=== PATIENT | male | born 1995 | race Caucasian/White ===

== ENCOUNTER 2023-05-20 22:49 | Observation (INO) | payer OTHER, SELFPAY ==
[2023-05-20] VITALS (7 sets, daily range): BP systolic 126–135; BP diastolic 81–99; PULSE 73–97; RESP 13–30; TEMP 36.7; O2SAT 93–100
--- NOTE | ~2023-05-20 | XR_ITS ---
EXAMINATION: XR chest 2V DATE: 05/21/2023 09:54 INDICATION: Altered mental status post migraine TECHNIQUE: PA and lateral views of the chest were obtained. COMPARISON: Chest radiograph dated 03/23/2019 FINDINGS: The lungs remain clear with no focal airspace opacities, pulmonary edema, pleural effusion or pneumot horax. The cardiomediastinal silhouette is normal. Visualized bones and soft tissues are unremarkable . IMPRESSION: 1. No acute cardiopulmonary disease. Reviewed, dictated and finalized at location A.
--- NOTE | ~2023-05-20 | CT_ITS ---
EXAMINATION: CT brain wo con DATE: 05/20/2023 23:01 INDICATION: Headache. Slurred speech. TECHNIQUE: Computed tomography (CT) of the head was performed without intravenous contrast. The mA wa s adjusted according to patient size. Iterative reconstruction technique was employed. The dose-lengt h product was 681.00 mGy-cm. COMPARISON: Head CT 02/22/2012 FINDINGS: There is no intracranial hemorrhage, acute infarction, or abnormal intracranial mass lesion . The ventricles are normal in size. There is mild mucosal thickening in the paranasal sinuses. The m astoid air cells are normal. IMPRESSION: 1. Normal brain. Reviewed, dictated and finalized at location A. IMPRESSION: 1. Normal brain.
--- NOTE | ~2023-05-20 | MR_ITS ---
EXAMINATION: MR brain/brain stem wo con DATE: 05/21/2023 13:16 INDICATION: Transient aphasia. Migraine headache. TECHNIQUE: Magnetic resonance imaging (MRI) of the brain and brainstem was performed without intraven ous contrast. COMPARISON: Head CT 05/20/2023 FINDINGS: There is no intracranial hemorrhage, acute infarction, or abnormal intracranial mass lesion . The ventricles are normal in size. There is mild mucosal thickening in the paranasal sinuses. The m astoid air cells are normal. The orbits are normal. IMPRESSION: 1. Normal brain. Reviewed, dictated and finalized at location A. IMPRESSION: 1. Normal brain.
[2023-05-20 22:59] LABS: Glucose Point of Care 156 mg/dl (65-105)
[2023-05-20 23:07] LABS: Basophils Absolute Auto 0.1 K/mm3 (0.0-0.1); Basophils Percent Auto 0.6 % (0.2-1.2); Eosinophils Percent Auto 0.4 % (0-4.4); Hematocrit 42.8 % (42.0-52.0); Hemoglobin 15.2 g/dL (14.0-18.0); Immature Granulocyte Absolute 0.05 K/mm3 (0.00-0.031); Immature Granulocyte Percent A 0.5 % (0-0.5); Lymphocytes Absolute Auto 2.09 K/mm3 (0.9-3.2); Mean Corpuscular HGB Conc 35.5 g/dl (32-36); Mean Corpuscular Hemoglobin 31.3 pg (26-34); Mean Corpuscular Volume 88.2 fl (80-100); Mean Platelet Volume 9.7 fl (7.4-10.4); Monocytes Absolute Auto 0.8 K/mm3 (0.1-0.6); Monocytes Percent Auto 6.9 % (2.6-8.5); Neutrophils Percent Auto 72.6 % (45.5-73.1); Platelet Count Result 243 k/mm3 (150-375); Red Blood Count 4.85 M/mm3 (4.6-6.20); Red Cell Distribution Width 11.4 % (11.5-14.5)
--- NOTE | 2023-05-20 23:09 | ECG_ITS ---
Measurements Intervals [place] Rate: 89 P: 5 IL: 136 QRS: 3 QRSD: 120 T: 1 QT: 385 QTc: 471 Interpretive Statements SINUS RHYTHM INCOMPLETE RIGHT BUNDLE BRANCH BLOCK BORDERLINE T WAVE ABNORMALITY- ANT/INF LEADS BASELINE ARTIFACT- I, II, III, AVR, AVL, AVF BORDERLINE ECG NO PREVIOUS ECG AVAILABLE FOR COMPARISON Electronically Signed On 05-22-2023 14:19:46 CDT by Lalito Sutton D.O.
[2023-05-20 23:13] LABS: Alanine Aminotransferase 22 U/L (6-50); Albumin Level 4.6 g/dL (3.5-5.1); Alkaline Phosphatase 92 U/L (38-126); Anion Gap 12 mmol/L (8-16); Aspartate Amino Transferase 26 U/L (17-59); Bilirubin,Total 0.5 mg/dL (0.2-1.3); Blood Urea Nitrogen 11 mg/dL (9-20); Calcium 9.5 mg/dL (8.4-10.2); Carbon Dioxide 24 mmol/L (22-30); Chloride 101 mmol/L (98-107); Estimated CRCL calculation 166 ml/min; Estimated Glomerular Filt Rate > 60; Glucose 142 mg/dL (65-110); Potassium 3.4 mmol/L (3.4-5.0); Sodium 137 mmol/L (137-145)
[2023-05-20] MEDS: ONDANSETRON INJ 4 MG/2 ML VIAL (23:13)
[2023-05-20] MEDS: diphenhydrAMINE HCl INJ 50 MG/ML VIAL 25 MG IV PUSH (23:13)
[2023-05-20] MEDS: METOCLOPRAMIDE HCL INJ 10 MG/2 ML VIAL IV PUSH (23:13)
[2023-05-20] MEDS: SODIUM CHLORIDE 0.9% IV 1,000 ML 999 ML IV CONT (23:15)
[2023-05-20] MEDS: KETOROLAC 15 MG/ML VIAL (*BKC) IV PUSH (23:57)
[2023-05-21] VITALS (28 sets, daily range): BP systolic 113–155; BP diastolic 51–81; PULSE 59–105; RESP 14–37; TEMP 36.3–36.4; O2SAT 96–99; BMI 31.8
--- NOTE | 2023-05-21 00:15 | ED.NEUROSD ---
HPI - Neuro Symptoms/Deficit General Chief Complaint: Neuro Symptoms/Deficit Stated Complaint: slurred speech, headache Time Seen by Provider: 05/20/23 23:01 History of Present Illness HPI Narrative: Patient brought to the emergency department by his significant other with concern for slurred speech and confusion after a severe headache started. Patient is a history of migraines. However he has not had any neurodeficits with migraines in the past. No extremity weakness or numbness. Patient appears very uncomfortable. History contributed by his significant other. After getting the head CT he had nausea and vomiting in the room. Related Data Home Medications Medication Instructions Recorded Confirmed No Home Medications 09/29/19 09/29/19 Allergies Allergy/AdvReac Type Severity Reaction Status Date / Time No Known Drug Allergies Allergy Unknown UNKNOWN Verified 10/02/19 11:16 Review of Systems Review of Systems: Review of systems are negative except for commented in the HPI PMFSH Past Medical History Medical History (Updated 05/21/23 @ 05:24 by Nicole Starkey MD) Anxiety Tonsillectomy planned Family History Family History Father Diabetes mellitus Grandparent Diabetes mellitus Social History Social History Smoking status: Never smoker Alcohol intake: never Exam Narrative: GENERAL: Well-appearing, well-nourished but uncomfortable and confused HEAD: Normocephalic, atraumatic. EYES: PERRLA and EOMI. ENT: Nares clear, no rhinorrhea or epistaxis. Mucous membranes moist. NECK: Supple. CHEST: Clear to auscultation. No respiratory distress. HEART: Regular rate and rhythm. ABDOMEN: Soft, nontender, nondistended. EXTREMITIES: Normal range of motion. No edema. SKIN: Warm, dry, no rash. NEURO: No focal deficits. Alert and oriented x3. confused when answering questions PSYCH: Normal mood and affect. Course Vital Signs Vital signs: Vital Signs Temperature 36.7 C 05/20/23 23:04 Pulse Rate 97 05/20/23 23:04 Respiratory Rate 17 05/20/23 23:04 Blood Pressure 126/81 05/20/23 23:04 Pulse Oximetry 96 05/20/23 23:04 Temperature 36.7 C 05/20/23 23:04 Pulse Rate 105 H 05/21/23 04:02 Respiratory Rate 19 05/21/23 04:02 Blood Pressure 143/59 H 05/21/23 04:02 Pulse Oximetry 97 05/21/23 04:02 MDM - Neuro Symptoms/Deficit MDM Narrative Medical decision making narrative: Patient speech is clear and carries on normal conversation. However still slightly confused at times. States headache is somewhat improved but still very uncomfortable and located left temporal region. Magnesium and Fioricet ordered for second line migraine treatment since initial medications did not help. Head CT read as unremarkable Lab Data 05/20/23 22:56 05/20/23 22:56 Labs: Lab Results 05/20/23 05/20/23 Range/Units 22:54 22:56 WBC 11.0 H (4.5-10.0) K/mm3 RBC 4.85 (4.6-6.20) M/mm3 Hgb 15.2 (14.0-18.0) g/dL Hct 42.8 (42.0-52.0) % MCV 88.2 (80-100) fl MCH 31.3 (26-34) pg MCHC 35.5 (32-36) g/dl RDW 11.4 L (11.5-14.5) % Plt Count 243 (150-375) k/mm3 MPV 9.7 (7.4-10.4) fl Immature Gran % (Auto) 0.5 (0-0.5) % Neut % (Auto) 72.6 (45.5-73.1) % Lymph % (Auto) 19.0 (18.3-44.2) % [place] % (Auto) 6.9 (2.6-8.5) % Eos % (Auto) 0.4 (0-4.4) % Baso % (Auto) 0.6 (0.2-1.2) % Lymph # (Auto) 2.09 (0.9-3.2) K/mm3 [place] # (Auto) 0.8 H (0.1-0.6) K/mm3 Eos # (Auto) 0.0 (0-0.3) K/mm3 Baso # (Auto) 0.1 (0.0-0.1) K/mm3 Abs Immat Gran (auto) 0.05 H (0.00-0.031) K/mm3 Absolute Neuts (auto) 8.0 H (1.3-6.7) K/mm3 Absolute Nucleated RBC 0.0 (0.0-0.012) K/mm3 Nucleated RBC % 0.0 (0.0-0.2) % Sodium 137 (137-145) mmol/L Potassium 3.4 (3.4-5.0) mmol/L Chloride 101 (98-1
[2023-05-21] MEDS: ACETAMINOPHEN/BUTALBITAL/CAFFEINE 325-50-40 MG TABLET (FIORICET) 1 TAB PO (01:50)
[2023-05-21] MEDS: MAGNESIUM SULF 2 GM/WATER 50ML 2 GM/50 ML BAG IVPB (01:52)
--- NOTE | 2023-05-21 08:13 | PM.IMHP ---
H&P: HPI History of Present Illness Date/Time: 05/21/23 08:13 Chief Complaint: Altered mental status Narrative: 28 years old gentleman with history of migraine, present ED with a chief complaint of headache, altered mental status and confusion. Patient had a headache yesterday evening about 11 PF, associated with nausea vomiting. Patient denies fever, chills, photophobia. Patient states he has history of migraine, and she really has nausea vomiting associated with migraine attack. Patient was noticed confused, slurred speech, but no seizure activity was noticed by his . Patient denied bladder region, but had unstable gait. Patient denies dizziness, chest pain, abdomen pain, nausea vomiting diarrhea dysuria. Patient was brought to ED for evaluation, in the ED, patient was still confused. In the ED, patient found have leukocytosis 11,000 afebrile, blood pressure stable, transient sinus tachycardia, CT of head shows no acute intracranial issues. ER physician consulted neurologist, we admit patient will further evaluation and management Review of Systems Review of Systems: RS negative except above PMFSH Past Medical History Medical History (Updated 05/21/23 @ 11:23 by Sylvie Delgado MD) Anxiety Tonsillectomy planned Family History Family History Father Diabetes mellitus Grandparent Diabetes mellitus Social History Social History Smoking status: Never smoker Alcohol intake: never Substance use: never Substance use type: does not use Lack of Transportation: No Lack of Food: Never True Current Housing: I Have Housing Concerned About Future Housing: No Difficulty Paying Gas/Electric Bills: No Difficulty Paying for Meds: No Currently Unemployed: No Education: Associate Degree Difficulty w/ Childcare or Family Care: No Spiritual care concerns: No Meds Home Medications and Allergies Home Medications Medication Instructions Recorded Confirmed Type No Home Medications 09/29/19 05/21/23 History Allergies Allergy/AdvReac Type Severity Reaction Status Date / Time No Known Drug Allergies Allergy Unknown UNKNOWN Verified 10/02/19 11:16 Vital Signs Vital Signs - 24 hr 05/20/23 23:04 05/20/23 23:22 05/20/23 23:04 Temperature 98.0 F Pulse Rate 97 80 93 Respiratory Rate 17 16 Blood Pressure 126/81 Pulse Oximetry 96 97 Oxygen Delivery 05/20/23 23:15 05/20/23 23:32 05/20/23 23:33 Temperature Pulse Rate 96 80 73 Respiratory Rate 30 H 15 13 Blood Pressure 134/99 H Pulse Oximetry 99 93 Oxygen Delivery 05/20/23 23:45 05/20/23 23:47 05/21/23 00:00 Temperature Pulse Rate 77 91 81 Respiratory Rate 25 H 20 37 H Blood Pressure 135/88 Pulse Oximetry 97 100 Oxygen Delivery 05/21/23 00:23 05/21/23 00:30 05/21/23 00:49 Temperature Pulse Rate 82 71 81 Respiratory Rate 23 H 22 H 18 Blood Pressure Pulse Oximetry 98 96 97 Oxygen Delivery 05/21/23 01:00 05/21/23 01:16 05/21/23 01:17 Temperature Pulse Rate 71 75 68 Respiratory Rate 22 H 22 H 20 Blood Pressure 149/75 H Pulse Oximetry 97 97 96 Oxygen Delivery 05/21/23 01:33 05/21/23 01:49 05/21/23 02:00 Temperature Pulse Rate 76 59 L 83 Respiratory Rate 19 16 20 Blood Pressure Pulse Oximetry 96 97 96 Oxygen Delivery 05/21/23 02:01 05/21/23 02:15 05/21/23 02:30 Temperature Pulse Rate 83 74 96 Respiratory Rate 18 15 24 H Blood Pressure 113/63 Pulse Oximetry 96 96 97 Oxygen Delivery 05/21/23 02:31 05/21/23 02:45 05/21/23 02:47 Temperature Pulse Rate 76 94 71 Respiratory Rate 25 H 17 Blood Pressure 146/73 H 155/77 H Pulse Oximetry 97 98 96 Oxygen Delivery 05/21/23 03:00 05/21/23 03:02 05/21/23 03:15 Temperature Pulse Rate 76 70 87 Respiratory Rate 19 19 17 Blood Pressure 122/51 L Pulse Oximetry 9
--- NOTE | 2023-05-21 10:10 | WPDNEURCNPN ---
Assessment and Plan Assessment and plan (1) Headache: Qualifiers: Headache chronicity pattern: acute headache Headache type: unspecified Intractability: not intractable Qualified Code(s): R51.9 - Headache, unspecified Code(s): R51.9 - Headache, unspecified Status: Acute (2) Acute alteration in mental status: Code(s): R41.82 - Altered mental status, unspecified Status: Acute (3) Migraine: Code(s): G43.909 - Migraine, unspecified, not intractable, without status migrainosus Status: Acute Plan Mr. Armstrong is a 28 year old male with a history of migraines presenting with new transient altered mental status and aphasia in the setting of a severe migraine. After acute treatment of migraine, patient's symptoms have resolved. Likely acute confusional migraine. - Patient has never taken a triptan for his migraines -- he can take sumatriptan 50mg as needed at onset of a migraine, can repeat dose x 1 if no relief - No preventative medication needed since migraines are infrequent - MRI brain w/o contrast -- if normal, okay to discharge Consult date: 05/21/23 Reason for consult: Headache, altered mental status HPI: Mainor Armstrong is a 28 year old male with a prior history of migraines presenting due to confusion in the setting of headache. Patient was brought to [place] ED yesterday after presenting with slurred speech and confusion after the onset of a severe headache. Patient has a history of migraines but has not had any confusional episodes like this before. He does not have any focal weakness or numbness. In the ED his CT head was unrevealing. WBC was 11, but otherwise labs were normal. UDS was ordered but has not been obtained. He initially received a migraine cocktail with Toradol, Benadryl, and Reglan. This did not abort the headache so he received magnesium and Fioricet as well. Patient's significant other reports that patient was actually aphasic for four hours. Patient reports that he had a migraine during these entire episode of speech change. He no longer has a headache and his speech is back to baseline. He has migraines sporadically at baseline, but they are fairly rare. He does not take any abortive medications for the migraines. He has never tried a triptan. Review of Systems Constitutional: Constitutional: Denies chills, Denies fever(s) and Denies weight loss Eyes: Eyes: Reports blurry vision, Denies diplopia and Denies loss of vision ENT: Denies dizziness, Denies hearing loss and Denies tinnitus Cardiovascular: Cardiovascular: Denies chest pain, Denies syncope and Denies dyspnea Respiratory: Respiratory: Denies cough, Denies dyspnea and Denies wheezing Gastrointestinal: Gastrointestinal: Denies abdominal pain, Denies change in bowel habits, Reports nausea and Reports vomiting Genitourinary: Genitourinary: Denies urinary incontinence Musculoskeletal: Musculoskeletal: Denies arthralgias and Denies joint swelling Integumentary/Breasts: Skin/Breast: Denies new lesions and Denies rash Neurologic: Reports as per HPI, Reports confusion, Denies dizziness, Denies syncope, Reports headache(s) and Denies loss of vision Psychiatric: Psychiatric: Denies anxiety and Denies depression Endocrine: Endocrine: Denies cold intolerance and Denies heat intolerance Hematologic/Lymphatic: Hematologic/Lymphatic: Denies easy bleeding and Denies easy bruising Allergic/Immunologic: Allergic/Immunologic: Denies no additional allergic/immunologic complaints and Denies wheezing PMFSH Past Medical History Medical History (Updated 05/21/23 @ 11:23 by Sylvie Delgado MD) Anxiety Tonsillectomy planned Family History Family History Father Diabetes mellitus Grandparent Diabetes mellitus Social History Social History Smoking status: Never smoker Alcohol intake: never Substance
[2023-05-21] MEDS: DEXTROSE 5%/0.9% SOD CHL 1,000 ML 100 ML IV CONT (11:37)
[2023-05-21 15:47] LABS: Appearance Urine Clear (Clear); Bilirubin Urine Negative (Negative); Blood Urine Negative (Negative); Color Urine Yellow (Yellow); Glucose Urine UA Negative (Negative); Ketones Urine Negative (Negative); Leukocyte Esterase Ur Negative LEU/UL (Negative); Nitrate Urine Negative (Negative); Protein Urine Negative (Negative); Urobilinogen Urine 0.2 mg/dL (<2.0)
[2023-05-21 15:52] LABS: Add Urine Microscopic? NO
--- NOTE | 2023-05-21 16:07 | PM.DS ---
DS: Admitting Diagnosis Discharge Date today Admitting Diagnosis (1) Headache: ?Qualifiers: ?Headache chronicity pattern:?acute headache??Headache type:?unspecified??Intractability:?not intractable? Qualified Code(s):?R51.9 - Headache, unspecified ?Code(s): R51.9 - Headache, unspecified ?Status:?Acute (2) Acute alteration in mental status: ?Code(s): R41.82 - Altered mental status, unspecified ?Status:?Acute (3) Migraine: ?Code(s): G43.909 - Migraine, unspecified, not intractable, without status migrainosus ?Status:?Acute DS: Discharge Diagnosis Discharge Diagnosis (1) Headache: Qualifiers: Headache chronicity pattern: acute headache Headache type: unspecified Intractability: not intractable Qualified Code(s): R51.9 - Headache, unspecified Code(s): R51.9 - Headache, unspecified Status: Acute (2) Acute alteration in mental status: Code(s): R41.82 - Altered mental status, unspecified Status: Acute DS: Summary Hospital Course Hospital Course: 28 years old gentleman with history of migraine, present ED with a chief complaint of headache, altered mental status and confusion.? Patient had a headache yesterday evening about 11 PF, associated with nausea vomiting.? Patient denies fever, chills, photophobia.? Patient states he has history of migraine, and she really has nausea vomiting associated with migraine attack.? Patient was noticed confused, slurred speech, but no seizure activity was noticed by his .? Patient denied bladder region, but had unstable gait.? Patient denies dizziness, chest pain, abdomen pain, nausea vomiting diarrhea dysuria.? Patient was brought to ED for evaluation, in the ED, patient was still confused. In the ED, patient found have leukocytosis 11,000 afebrile, blood pressure stable, transient sinus tachycardia, CT of head shows no acute intracranial issues.? ER physician consulted neurologist, we admit patient will further evaluation and management The following medical issues have been addressed in the hospital during hospitalization Altered mental status Patient has history of migraine, and patient had headache associated with nausea vomiting yesterday evening. Later on patient was noticed confused and slurred speech denies vision change, no focal weakness, or abnormal sensation, but had unstable gait yesterday evening Patient denies tongue bite, urinary fecal incontinence, chest pain, palpitation When I saw and examined patient today, patient was oriented x3, not confused. No focal weakness, no vision change Unclear etiology Denies nausea vomiting photophobia Patient has mild elevated leukocytosis 11 signs and patient is afebrile, blood pressure stable CT head shows no acute intracranial issues Neuro check orderd drug screening, not sent. Chest x-ray, urinalysis unremarkable Chest x-ray unremarkable Consult neurologist for evaluation and treatment MRI of brain unremarkable ?Likely acute confusional migraine per neurologist's evaluation Currently patient is alert oriented, not confused, no focal weakness Patient will be discharged home with ?sumatriptan 50mg as needed at onset of a migraine, can repeat dose x 1 if no relief Hospital course uneventful. Time Spent with Patient Time attestation: Total time spent providing and/or coordinating discharge services: Exam Narrative: GENERAL: Pleasant, in no acute distress. Well-nourished. - EYES: EOMI. Anicteric. - HENT: Moist mucous membranes. - LUNGS: Clear to auscultation bilaterally, no wheezing, rhonchi, or rales. - CARDIOVASCULAR: Regular rate and rhythm. No murmur. No JVD. - ABDOMEN: Soft, non-tender and non-distended. No palpable masses. - EXTREMITIES: No edema. Peripheral pulses 2+. Non-tender. - NEUROLOGIC: No focal neurological deficits. CN II-XII grossly intact. - PSYCHIATRIC: Awake, Alert and oriented x 3. Appropriate mood and affect. - SKIN: No rashes or lesio
== END 2023-05-21 18:15 | disposition home or self-care (01) ==
LOC: ANHED 05-21 05:24 → ANH3MEDSUR 05-21 05:54
PROVIDERS: Admitting Provider Hospitalist; Emergency Provider Emergency Medicine; PCP Family Medicine Sports Medicine; Visit Provider Hospitalist
DX: G43.909 Migraine, unspecified, not intractable, without status migrainosus (principal); R41.82 Altered mental status, unspecified; I45.10 Unspecified right bundle-branch block; R11.2 Nausea with vomiting, unspecified; F41.9 Anxiety disorder, unspecified; D72.829 Elevated white blood cell count, unspecified; R00.0 Tachycardia, unspecified
CPT/HCPCS: 36415; 70450; 70551; 71046; 80053; 81003; 82948; 85025; 93005; 96361; 96365; 96374; 96375; 99285; A9270; G0378; J1200; J1885; J2405; J2765; J3475; J7030; J7042